=== PATIENT | female | born 1955 | race Caucasian/White ===

== ENCOUNTER 2016-10-24 23:39 | Inpatient (IN) | payer BC ==
[~2016-10-24] VITALS: Ht 160 cm; Wt 70.3 kg
[~2016-10-24 23:39] MED LIST: SYN75 PO
[2016-10-24 23:40] VITALS: BP 136/71; PULSE 73; RESP 18; TEMP 97.6; O2SAT 98
[2016-10-24] MEDS ORDERED: NACL 0.9% 1,000 ML IV ONE (23:52)
[2016-10-25] VITALS (8 sets, daily range): BP systolic 109–133; BP diastolic 57–95; PULSE 56–86; RESP 16–18; TEMP 96.4–98.2; O2SAT 96–100
[2016-10-25] MEDS ORDERED: ASPIRIN 81 MG TAB.CHEW PO ONE
[2016-10-25 00:55] LABS: BASOPHILS % (AUTO) 0.5 % (0.0-2.0); EOSINOPHILS # (AUTO) 0.1 K/uL (0.0-0.4); EOSINOPHILS % (AUTO) 1.7 % (0.0-4.0); HEMATOCRIT 35.3 % (36-48); HEMOGLOBIN 12.1 g/dL (12.0-16.0); LYMPHOCYTES # (AUTO) 2.6 K/uL (1.0-5.5); LYMPHOCYTES % (AUTO) 36.3 % (20.5-51.5); MEAN CORPUSCULAR HEMOGLOBIN 31 pg (27-31); MEAN CORPUSCULAR HGB CONC 34 % (32-36); MEAN CORPUSCULAR VOLUME 91 fL (79.0-98.0); MONOCYTES # (AUTO) 0.4 K/uL (0.0-1.0); MONOCYTES % (AUTO) 5.8 % (1.7-9.3); NEUTROPHILS % (AUTO) 55.7 % (40.0-70.0); PLATELET COUNT (AUTO) 232 K/uL (130-430); RED BLOOD CELL COUNT(AUTO) 3.88 MIL/uL (4.2-6.2); RED CELL DISTRIBUTION WIDTH 12.6 % (9.0-15.0); WHITE BLOOD COUNT (AUTO) 7.1 K/uL (4.8-10.8)
[2016-10-25 00:58] LABS: ANION GAP 10 (5-15); CALCIUM 9.5 mg/dL (8.4-11.0); CHLORIDE 102 mmol/L (98-107); GLUCOSE 119 mg/dL (70-99); POTASSIUM 3.8 mmol/L (3.5-5.1); SODIUM SERUM 142 mmol/L (136-145); UREA NITROGEN, BLOOD 21 mg/dL (8-21)
[2016-10-25] MEDS ORDERED: KETOROLAC TROMETHAMINE 30 MG VIAL IVP ONE (01:00)
[2016-10-25 01:02] LABS: GFR AFRICAN AMERICAN 109 mL/min (>90)
[2016-10-25 01:04] LABS: INR 0.9 (0.8-1.2); PROTHROMBIN TIME 10.2 SECS (9.5-12.5)
[2016-10-25 01:07] LABS: ALANINE AMINOTRANSFERASE 28 U/L (12-78); ALBUMIN 4.2 g/dL (3.4-4.8); ASPARTATE AMINOTRANSFERASE 13 U/L (10-37); TOTAL BILIRUBIN 0.2 mg/dL (0.0-1.0); TOTAL PROTEIN, SERUM 7.2 g/dL (6.4-8.3)
[2016-10-25] MEDS ORDERED: LIP10 PO (01:53)
[2016-10-25] MEDS ORDERED: ASA81 PO (01:53)
[2016-10-25] MEDS ORDERED: SYN75 PO (01:53)
[2016-10-25] MEDS ORDERED: ENAL10TA PO (01:53)
[2016-10-25] MEDS ORDERED: fentaNYL CITRATE/PF 100 MCG/2 ML AMP IVP ONE (02:15)
[2016-10-25] MEDS: MORPHINE 2 MG/ML INJ. SYRINGE IVP PRN ×3 (03:26→20:44)
[2016-10-25 08:41] LABS: CREATINE KINASE, TOTAL 47 U/L (26-192)
[2016-10-25] MEDS: ASPIRIN 81 MG TAB.CHEW PO SCH (09:18)
[2016-10-25] MEDS: PANTOPRAZOLE SODIUM 40 MG TAB PO SCH (09:19)
[2016-10-25] MEDS ORDERED: ATORVASTATIN 10 MG TABLET PO ONE (14:00)
[2016-10-25] MEDS ORDERED: ENALAPRIL MALEATE 10 MG TABLET (VASOTEC) PO ONE (14:00)
[2016-10-25] MEDS ORDERED: LEVOTHYROXINE SODIUM 0.075 MG TABLET PO ONE (14:15)
[2016-10-25 17:31] LABS: CREATINE KINASE, TOTAL 48 U/L (26-192)
[2016-10-25] MEDS ORDERED: SIMETHICONE 80 MG TAB.CHEW PO PRN (18:30)
[2016-10-26] MEDS ORDERED: LEVOTHYROXINE SODIUM 0.075 MG TABLET PO SCH (07:00)
[2016-10-26 07:56] VITALS: BP 102/59; PULSE 62; RESP 18; TEMP 97.8
[2016-10-26 07:56] LABS: THYROID STIMULATING HORMONE 1.66 uIu/mL (0.34-4.82)
[2016-10-26] MEDS ORDERED: ATORVASTATIN 10 MG TABLET PO SCH (09:00)
[2016-10-26] MEDS ORDERED: ENALAPRIL MALEATE 10 MG TABLET (VASOTEC) PO SCH (09:00)
[2016-10-26] MEDS: PANTOPRAZOLE SODIUM 40 MG TAB PO SCH (09:11)
[2016-10-26] MEDS: ASPIRIN 81 MG TAB.CHEW PO SCH (09:11)
[2016-10-26] MEDS ORDERED: MILK OF MAGNESIA 30 ML UDC PO ONE (09:30)
[2016-10-26 11:14] VITALS: BP 149/80; PULSE 69; RESP 18; TEMP 98.2; O2SAT 95
== END 2016-10-26 12:00 | disposition home or self-care (01) | DRG 392 ==
LOC: SED 23:39 → STU 10-25 02:38
PROVIDERS: ADMIT Internal Medicine; ATTEND Internal Medicine
DX: K22.4 Dyskinesia of esophagus (principal); N39.41 Urge incontinence; E03.9 Hypothyroidism, unspecified; E78.5 Hyperlipidemia, unspecified; I10 Essential (primary) hypertension; F12.90 Cannabis use, unspecified, uncomplicated; M19.90 Unspecified osteoarthritis, unspecified site; R35.0 Frequency of micturition; Z88.2 Allergy status to sulfonamides; Z82.49 Family history of ischemic heart disease and other diseases of the circulatory system; Z90.710 Acquired absence of both cervix and uterus
CPT/HCPCS: 36415; 71010; 80053; 80061; 82550-TC; 84443-TC; 84484; 85025; 85610-TC; 85730-TC; 93005; 96360; 99285; J1885; J2270; J3010

== ENCOUNTER 2019-01-24 19:07 | Emergency (ER) | payer OTHER, MEDICARE ==
[~2019-01-24] VITALS: Ht 160 cm; Wt 63.5 kg
[~2019-01-24 19:07] MED LIST changes: +ASA81 PO; +ENAL10TA PO; +LIP10 PO
[2019-01-24 19:30] VITALS: BP_SYST 139
[2019-01-24] MEDS ORDERED: MORPHINE 4 MG/ML INJ. SYRINGE IVP ONE ×2 (20:15→22:00)
[2019-01-24 20:48] LABS: BASOPHILS % (AUTO) 0.6 % (0.0-2.0); EOSINOPHILS # (AUTO) 0.1 K/uL (0.0-0.4); EOSINOPHILS % (AUTO) 1.4 % (0.0-4.0); HEMATOCRIT 37.9 % (36-48); LYMPHOCYTES # (AUTO) 1.9 K/uL (1.0-5.5); LYMPHOCYTES % (AUTO) 30.9 % (20.5-51.5); MEAN CORPUSCULAR HEMOGLOBIN 31 pg (27-31); MEAN CORPUSCULAR HGB CONC 34 % (32-36); MEAN CORPUSCULAR VOLUME 92 fL (79.0-98.0); MONOCYTES # (AUTO) 0.4 K/uL (0.0-1.0); MONOCYTES % (AUTO) 6.3 % (1.7-9.3); NEUTROPHILS # (AUTO) 3.7 K/uL (1.8-7.7); NEUTROPHILS % (AUTO) 60.8 % (40.0-70.0); PLATELET COUNT (AUTO) 277 K/uL (130-430); RED BLOOD CELL COUNT(AUTO) 4.14 MIL/uL (4.2-6.2); RED CELL DISTRIBUTION WIDTH 13.3 % (9.0-15.0)
[2019-01-24 20:54] LABS: ANION GAP 11 (5-15); CALCIUM 9.8 mg/dL (8.4-11.0); CHLORIDE 102 mmol/L (98-107); CREATININE 0.86 mg/dL (0.55-1.30); GLUCOSE 104 mg/dL (70-99); POTASSIUM 3.8 mmol/L (3.5-5.1); SODIUM SERUM 141 mmol/L (136-145); UREA NITROGEN, BLOOD 21 mg/dL (8-21)
[2019-01-24 20:55] LABS: GFR AFRICAN AMERICAN 85 mL/min (>90)
[2019-01-24 21:02] LABS: ALANINE AMINOTRANSFERASE 25 U/L (12-78); ALBUMIN 3.9 g/dL (3.4-4.8); ASPARTATE AMINOTRANSFERASE 12 U/L (10-37); TOTAL BILIRUBIN 0.3 mg/dL (0.0-1.0)
[2019-01-24] MEDS ORDERED: IOHEXOL 100 ML IV ONE (22:36)
[2019-01-25] MEDS ORDERED: ONDANSETRON 4 MG ODT TAB PO ONE (00:15)
[2019-01-25 00:40] VITALS: BP_SYST 135
== END 2019-01-24 23:53 | disposition home or self-care (01) ==
LOC: SED 19:07
DX: R07.89 Other chest pain (principal); E03.9 Hypothyroidism, unspecified; E78.00 Pure hypercholesterolemia, unspecified; Z90.710 Acquired absence of both cervix and uterus; Z79.82 Long term (current) use of aspirin; Z79.899 Other long term (current) drug therapy
CPT/HCPCS: 36415; 71045; 71260; 80053; 84484; 85025; 93005; 96374; 96376; 99284; J2270; Q9967; Q0162

== ENCOUNTER 2022-02-10 02:27 | Emergency (ER) | payer OTHER, MEDICARE ==
[~2022-02-10] VITALS: Ht 160 cm; Wt 61.7 kg
[~2022-02-10 02:27] MED LIST changes: -ENAL10TA PO; +ENAL10TA19 PO
[2022-02-10 02:54] VITALS: BP_SYST 120
[2022-02-10] MEDS ORDERED: AMOXICILLIN/CLAVULANATE POTASSIUM 500 MG TABLET PO ONE (03:30)
[2022-02-10] MEDS ORDERED: HYDROcodone/ACETAMIN 5-325 MG TAB (NORCO/ VICODIN) PO ONE (03:30)
[2022-02-10] MEDS ORDERED: TRAM50TA2 PO (03:41)
[2022-02-10] MEDS ORDERED: IBUP-1969 PO (03:41)
[2022-02-10] MEDS ORDERED: AMOX-423 PO (03:41)
[2022-02-10 04:18] VITALS: BP_SYST 113
== END 2022-02-10 04:18 | disposition home or self-care (01) ==
LOC: SED 02:27
DX: S61.102A Unspecified open wound of left thumb with damage to nail, initial encounter (principal); I10 Essential (primary) hypertension; E03.9 Hypothyroidism, unspecified; E78.5 Hyperlipidemia, unspecified; Z79.899 Other long term (current) drug therapy; W23.0XXA Caught, crushed, jammed, or pinched between moving objects, initial encounter; Y93.89 Activity, other specified; Y92.89 Other specified places as the place of occurrence of the external cause; Y99.8 Other external cause status
CPT/HCPCS: 99283

== ENCOUNTER 2022-10-07 02:42 | Emergency (ER) | payer OTHER, MEDICARE ==
[~2022-10-07] VITALS: Ht 160 cm; Wt 62.1 kg
[~2022-10-07 02:42] MED LIST changes: +AMOX-423 PO; +IBUP-1969 PO; +TRAM50TA2 PO
[2022-10-07 03:00] VITALS: BP_SYST 135
--- NOTE | 2022-10-07 03:00 | NUR ---
Patient triaged and placed in waiting room. VSS and patient appears in no acute distress at this time. Awaiting available bed, and MD notified of need for MSE.
--- NOTE | 2022-10-07 03:01 | NUR ---
ER examining patient in the triage room.
[2022-10-07] MEDS ORDERED: IBUPROFEN 800 MG TABLET PO ONE (03:30)
[2022-10-07] MEDS ORDERED: cefTRIAXone 1 GM VIAL IM ONE (03:30)
[2022-10-07] MEDS ORDERED: CEPH-548 PO (03:38)
[2022-10-07] MEDS ORDERED: NAPR-1172 PO (03:38)
[2022-10-07] MEDS ORDERED: LIDOCAINE 1%, 20 ML MDV 20 ML ONE (04:45)
[2022-10-07 05:10] VITALS: BP_SYST 130
--- NOTE | 2022-10-07 05:18 | NUR ---
Note undone in EDM - 10/07/22 at 0519 by [email or web address] Patient given written and verbal discharge instructions and verbalizes understanding. ER discussed with patient the results and treatment provided. Patient in stable condition. ID arm band removed. Rx of Cephalexin and Naprosyn given. Patient educated on pain management and to follow up with PMD. Pain Scale 5/10. Opportunity for questions provided and answered. Medication side effect fact sheet provided.
--- NOTE | 2022-10-07 05:19 | NUR ---
Patient given written and verbal discharge instructions in the triage room and verbalizes understanding. ER MD discussed with patient the results and treatment provided. Patient in stable condition. ID arm band removed. Rx of Cephalexin and Naprosyn given. Patient educated on pain management and to follow up with PMD. Pain Scale 5/10. Opportunity for questions provided and answered. Medication side effect fact sheet provided.
== END 2022-10-07 05:10 | disposition home or self-care (01) ==
LOC: SED 02:42
DX: L03.011 Cellulitis of right finger (principal); I10 Essential (primary) hypertension; Z79.899 Other long term (current) drug therapy
CPT/HCPCS: 99283; 73140; 96372; J0696; J2001

== ENCOUNTER 2023-08-15 10:21 | Emergency (ER) | payer OTHER, MEDICARE ==
[~2023-08-15] VITALS: Ht 160 cm; Wt 63.5 kg
[~2023-08-15 10:21] MED LIST changes: +CEPH-548 PO; +ENAL-77 PO; -ENAL10TA19 PO; +NAPR-1172 PO
[2023-08-15 10:24] VITALS: BP_SYST 141; PULSE 71; RESP 18; TEMP 97; O2SAT 98
[2023-08-15] MEDS ORDERED: TOBR5DRO12 LEFT EYE (10:53)
[2023-08-15 11:05] VITALS: BP_SYST 146; PULSE 71; RESP 18; TEMP 97; O2SAT 98
[2023-08-15] MEDS ORDERED: TETRACAINE HCL/PF 0.5% OPHTHALMIC DROPS 4 ML OP ONE (12:00)
[2023-08-15] MEDS ORDERED: FLUORESCEIN SODIUM 1 MG OPHTHALMIC STRIP OP ONE (12:00)
== END 2023-08-15 11:04 | disposition home or self-care (01) ==
LOC: SED 10:21
DX: H57.8A2 Foreign body sensation, left eye (principal); I10 Essential (primary) hypertension; Z79.899 Other long term (current) drug therapy
CPT/HCPCS: 99284